=== PATIENT | female | born 1975 | race Caucasian/White ===

== ENCOUNTER 2018-10-15 20:17 | Emergency (ER) | payer MEDICAID ==
[2018-10-15] MEDS: IBUPROFEN 600 MG TAB PO (23:04)
== END 2018-10-15 23:36 | disposition home or self-care (01) ==
LOC: FTE 20:17
DX: N64.4 Mastodynia (principal); J45.909 Unspecified asthma, uncomplicated
CPT/HCPCS: 99282; Z7502